=== PATIENT | male | born 2000 | race Two or more races ===

== ENCOUNTER 2022-11-07 19:28 | Emergency (ER) | payer OTHER ==
[~2022-11-07] VITALS: Ht 167.6 cm; Wt 143.4 kg
[2022-11-07] MEDS ORDERED: ACETAMINOPHEN 500 MG TAB PO ONE (20:30)
[2022-11-07 21:54] VITALS: BP 129/64
== END 2022-11-08 01:21 | disposition home or self-care (01) ==
LOC: ER 19:28
DX: J10.1 Influenza due to other identified influenza virus with other respiratory manifestations (principal); R07.89 Other chest pain; Z20.822 Contact with and (suspected) exposure to COVID-19
CPT/HCPCS: 36415; 71046; 87426; 87804